=== PATIENT | female | born 1985 | race Asian ===

== ENCOUNTER 2019-09-15 19:18 | Outpatient (CLI) | payer OTHER ==
[2019-09-15] MEDS ORDERED: MOBIC15 MG PO (19:49)
[2019-09-15] MEDS ORDERED: VENL37.511 PO (19:50)
[2019-09-15] MEDS ORDERED: AMLODIPINE BESYLATE PO (19:51)
[2019-09-15] MEDS ORDERED: OXAYDO5 MG PO (19:51)
[2019-09-15] MEDS ORDERED: ASPIRIN 8181 MG PO (19:53)
[2019-09-15] MEDS ORDERED: ATEN50TA36 PO (19:54)
[2019-09-15] MEDS ORDERED: DOCU SOFT100 MG PO (19:54)
[2019-09-15] MEDS ORDERED: IBU800 MG PO (19:56)
== END 2019-09-15 19:26 | disposition short-term general hospital (02) ==
LOC: AMB 19:18
DX: M25.552 Pain in left hip (principal); Z96.642 Presence of left artificial hip joint
CPT/HCPCS: A0425; A0427

== ENCOUNTER 2019-09-15 19:31 | Emergency (ER) | payer OTHER ==
[~2019-09-15] VITALS: Ht 165.1 cm; Wt 112.0 kg
[2019-09-15] MEDS ORDERED: MOBIC15 MG PO (19:49)
[2019-09-15] MEDS ORDERED: VENL37.511 PO (19:50)
[2019-09-15] MEDS ORDERED: AMLODIPINE BESYLATE PO (19:51)
[2019-09-15] MEDS ORDERED: OXAYDO5 MG PO (19:51)
[2019-09-15] MEDS ORDERED: ASPIRIN 8181 MG PO (19:53)
[2019-09-15] MEDS ORDERED: DOCU SOFT100 MG PO (19:54)
[2019-09-15] MEDS ORDERED: ATEN50TA36 PO (19:54)
[2019-09-15] MEDS ORDERED: IBU800 MG PO (19:56)
[2019-09-15 20:02] LABS: PLATELET COUNT 355 K/uL (152-353)
[2019-09-15 20:07] LABS: POTASSIUM 3.7 mmol/L (3.6-5.2)
[2019-09-15 22:20] VITALS: BP 151/88
== END 2019-09-15 22:28 | disposition short-term general hospital (02) ==
LOC: ED 19:31
PROVIDERS: Family Medicine
DX: T84.021A Dislocation of internal left hip prosthesis, initial encounter (principal); Z96.642 Presence of left artificial hip joint
CPT/HCPCS: 80053; 85007; 85027; 85379; 96374; 99284; J2270

== ENCOUNTER 2019-09-15 22:24 | Outpatient (CLI) | payer OTHER ==
[~2019-09-15 22:24] MED LIST: AMLODIPINE BESYLATE PO; ASPIRIN 8181 MG PO; ATEN50TA36 PO; DOCU SOFT100 MG PO; IBU800 MG PO; MOBIC15 MG PO; OXAYDO5 MG PO; VENL37.511 PO
== END 2019-09-15 22:55 | disposition short-term general hospital (02) ==
LOC: AMB 22:24
DX: T84.021A Dislocation of internal left hip prosthesis, initial encounter (principal); Z96.642 Presence of left artificial hip joint
CPT/HCPCS: A0425; A0427

== ENCOUNTER 2020-03-16 20:11 | Outpatient (CLI) | payer OTHER ==
[2020-03-16 20:43] LABS: PLATELET COUNT 358 K/uL (152-353)
== END 2020-03-16 20:40 | disposition home or self-care (01) ==
LOC: LABW 20:11
PROVIDERS: Orthopaedic Surgery
DX: M25.552 Pain in left hip (principal)
CPT/HCPCS: 36415; 85027; 85651; 86140

== ENCOUNTER 2022-02-20 10:00 | Outpatient (CLI) | payer OTHER ==
[~2022-02-20] VITALS: Ht 165.1 cm; Wt 116.1 kg
[2022-02-20 11:18] VITALS: BP 119/83; TEMP 98.3
[2022-02-20 11:35] VITALS: BP 115/87; TEMP 97.9
[2022-02-20 12:15] VITALS: BP 124/94; TEMP 97.9
--- NOTE | 2022-02-20 12:20 | NUR ---
1040 PT AMBULATED TO ROOM 1126 FOR OP INFUSION. PT STATES SHE IS NOT ALLERGIC TO ANY MEDICATION IS 5'5" AND WEIGHS 256 POUNDS VS OBTAINED T. 97.6 HR-88 BP 128/90 RR 16 O2 SATS 99% ON ROOM AIR 1053 24GPIV TO RFA X1 ATTEMPT FLUSHED WITH 10ML NS SECURED WITH TEGADERM.PT DENIES ANY COMPLAINTS AT THIS TIME 1100 BEBTELOVIMAB IVPUSH OVER 30 SECONDS FOLLOWED BY 10ML NS FLUSH PT TOLERATED INFUSION WITH NO COMPLAINTS WILL MONITOR VS 1215 PT TOLERATED INFUSION WITH NO ADVERSE REACTIONS. IV D/C INTACT. 1217 PT AMBULATED OUT OF FACILITY TO POV UNACCOMPANIED IN NO DISTRESS
== END 2022-02-20 21:17 | disposition home or self-care (01) ==
LOC: INF 10:00
PROVIDERS: ATTEND Family Medicine
DX: Z23 Encounter for immunization (principal); U07.1 COVID-19
CPT/HCPCS: 96374; Q0222